=== PATIENT | male | born 1950 | race Caucasian/White ===

== ENCOUNTER 2016-05-23 19:35 | Inpatient (IN) | payer BC ==
[2016-05-23] MEDS ORDERED: HEPARIN SODIUM,PORCINE 10,000 UNIT/ML 1 ML VIAL IV ONE (19:54)
[2016-05-23] MEDS ORDERED: HYDROmorphone 1 MG/ML 1 ML SYRINGE IVP STA (19:55)
[2016-05-23] MEDS ORDERED: ONDANSETRON 4 MG/2 ML VIAL IVP STA (19:56)
--- NOTE | 2016-05-23 19:58 | ED ---
General Adult HPI - General Chief complaint: Chest Pain Stated complaint: Chest Pain Time Seen by Provider: 05/23/16 19:40 Source: patient, RN notes reviewed Mode of arrival: wheelchair Limitations: no limitations - History of Present Illness Initial comments: This is a 66-year-old male who was diagnosed with a pulmonary embolism on Saturday patient has taken Xarelto Saturday and this morning. He has not taken the dose of Xarelto tonight. Patient states about 1:30 this afternoon started developing left-sided sharp chest pain worse with inspiration. Patient states is also mildly short of breath. Patient states they do not know why he has pulmonary embolisms but no one has investigated yet. Patient denies any palpitations. Patient denies any fever or chills. Patient denies abdominal pain. Patient denies nausea vomiting diarrhea. Patient denies any leg swelling or calf tenderness. Patient denies headache patient denies numbness weakness. - Related Data Home Medications Medication Instructions Recorded Confirmed Albuterol Nebulized [Ventolin 2.5 mg INHALATION RT-Q6H PRN 05/23/16 05/23/16 Nebulized] Losartan [Cozaar] 25 mg PO DAILY 05/23/16 05/23/16 Rivaroxaban [Xarelto] 15 mg PO BID 05/23/16 05/23/16 Allergies Allergy/AdvReac Type Severity Reaction Status Date / Time No Known Allergies Allergy Verified 05/23/16 19:59 Review of Systems ROS Statement: Those systems with pertinent positive or pertinent negative responses have been documented in the HPI. ROS Other: All systems not noted in ROS Statement are negative. Past Medical History Past Medical History: Deep Vein Thrombosis (DVT), Hypertension Additional Past Medical History / Comment(s): blood clot History of Any Multi-Drug Resistant Organisms: None Reported Past Surgical History: No Surgical Hx Reported Past Psychological History: No Psychological Hx Reported Smoking Status: Never smoker Past Alcohol Use History: Rare Past Drug Use History: None Reported General Exam - General Exam Comments Initial Comments: GENERAL: Patient is well-developed and well-nourished. Patient is nontoxic and well- hydrated and is in mild distress. ENT: Neck is soft and supple. No significant lymphadenopathy is noted. Oropharynx is clear. Moist mucous membranes. Neck has full range of motion without eliciting any pain. EYES: The sclera were anicteric and conjunctiva were pink and moist. Extraocular movements were intact and pupils were equal round and reactive to light. Eyelids were unremarkable. PULMONARY: Unlabored respirations. Good breath sounds bilaterally. No audible rales rhonchi or wheezing was noted. CARDIOVASCULAR: There is a regular rate and rhythm without any murmurs gallops or rubs. ABDOMEN: Soft and nontender with normal bowel sounds. No palpable organomegaly was noted. There is no palpable pulsatile mass. SKIN: Skin is clear with no lesions or rashes and otherwise unremarkable. NEUROLOGIC: Patient is alert and oriented x3. Cranial nerves II through XII are grossly intact. Motor and sensory are also intact. Normal speech, volume and content. Symmetrical smile. MUSCULOSKELETAL: Normal extremities with adequate strength and full range of motion. No lower extremity swelling or edema. No calf tenderness. LYMPHATICS: No significant lymphadenopathy is noted PSYCHIATRIC: Normal psychiatric evaluation. Normal interpersonal interactions appears functionally intact in deals appropriately with others. No signs of depression. No signs of anxiety. Limitations: no limitations Course Vital Signs 05/23/16 05/23/16 05/23/16 19:39 20:45 20:59 Temperature 98.4 F Pulse Rate 104 H 88 Respiratory 20 20 Rate Blood Pressure 144/83 153/77 O2 Sat by Pulse 92 L 88 L 89 L Oximetry Medical Decision Making - Medical Decision Making EKG shows sinus tachycardia at 102 bpm MI interval 298 QRS is 92 QT interval 306 QTC is 398. Patient's EKG shows inverted T waves in the inferior leads II, III, and F aVF patient also has inverted T waves in leads V3 through V6. I currently have no old EKG to compare to. I started the patient on high-dose heparin once I saw that the patient had bilateral central pulmonary emboli. Spoke with Dr. Hoover he agreed to admit the patient. I spoke with the swimming pool salesperson and he agreed to admit the patient. ICU. I wrote admitting orders and continue the heparin on the floor. - Lab Data Result diagrams: 05/23/16 20:15 05/23/16 20:15 Lab Results 05/23/16 05/23/16 05/23/16 Range/Units 20:15 20:15 20:15 WBC 9.7 (3.8-10.6) k/uL RBC 4.82 (4.30-5.90) m/uL Hgb 15.0 (13.0-17.5) gm/dL Hct 43.4 (39.0-53.0) % MCV 90.0 (80.0-100.0) fL MCH 31.1 (25.0-35.0) pg MCHC 34.6 (31.0-37.0) g/dL RDW 13.4 (11.5-15.5) % Plt Count 208 (150-450) k/uL Neutrophils % 79 % Lymphocytes % 11 % Monocytes % 7 % Eosinophils % 1 % Basophils % 1 % Neutrophils # 7.6 (1.3-7.7) k/uL Lymphocytes # 1.1 (1.0-4.8) k/uL Monocytes # 0.6 (0-1.0) k/uL Eosinophils # 0.1 (0-0.7) k/uL Basophils # 0.1 (0-0.2) k/uL PT 13.4 H (9.0-12.0) sec INR 1.4 (<1.1) APTT 29.0 (22.0-30.0) sec D-Dimer 4.68 H (<0.60) mg/L FEU Sodium 141 (137-145) mmol/L Potassium 3.5 (3.5-5.1) mmol/L Chloride 106 (98-107) mmol/L Carbon Dioxide 21 L (22-30) mmol/L Anion Gap 14 mmol/L BUN 16 (9-20) mg/dL Creatinine 1.23 (0.66-1.25) mg/dL Est GFR (MDRD) Af Amer >60 (>60 ml/min/1.73 sqM) Est GFR (MDRD) Non-Af 59 (>60 ml/min/1.73 sqM) Glucose 133 H (74-99) mg/dL Calcium 9.3 (8.4-10.2) mg/dL Magnesium 2.0 (1.6-2.3) mg/dL Total Bilirubin 1.1 (0.2-1.3) mg/dL AST 31 (17-59) U/L ALT 42 (21-72) U/L Alkaline Phosphatase 105 (38-126) U/L Total Protein 7.5 (6.3-8.2) g/dL Albumin 3.9 (3.5-5.0) g/dL Critical Care Time Critical Care Time: Yes Total Critical Care Time: 35 Disposition Clinical Impression: Pulmonary embolism Disposition: ADMITTED IP TO THIS HOSP Referrals: Elisa Deleon DO [Primary Care Provider] - 1-2 days Time of Disposition: 21:02
[2016-05-23 20:25] LABS: Basophils # (A) 0.1 k/uL (0-0.2); Basophils % (A) 1 %; CH 30.6; CHCM 34.1; Eosinophils # (A) 0.1 k/uL (0-0.7); Eosinophils % (A) 1 %; HCT 43.4 % (39.0-53.0); HDW 2.73; Luc # (Auto) 0.16; Luc % (Auto) 2; Lymphocytes # (A) 1.1 k/uL (1.0-4.8); Lymphocytes % (A) 11 %; MCH 31.1 pg (25.0-35.0); MCHC 34.6 g/dL (31.0-37.0); Mean Platelet Volume 8.2; Monocytes # (A) 0.6 k/uL (0-1.0); Monocytes % (A) 7 %; Neutrophils # (A) 7.6 k/uL (1.3-7.7); Neutrophils % (A) 79 %; RBC 4.82 m/uL (4.30-5.90); RDW 13.4 % (11.5-15.5); WBC 9.7 k/uL (3.8-10.6); WBC (Perox) 9.62
[2016-05-23] MEDS: HEPARIN SODIUM,PORCINE/D5W PMX 25,000 UNIT in DEXTROSE/WATER 1 500ML.BAG IV SCH (20:26)
[2016-05-23 20:35] LABS: ALT 42 U/L (21-72); AST 31 U/L (17-59); Alkaline Phosphatase 105 U/L (38-126); Anion Gap 14 mmol/L; Blood Urea Nitrogen 16 mg/dL (9-20); Calcium 9.3 mg/dL (8.4-10.2); Carbon Dioxide 21 mmol/L (22-30); Chloride 106 mmol/L (98-107); Glucose 133 mg/dL (74-99); Non-African American GFR(MDRD) 59 (>60 ml/min/1.73 sqM); Potassium 3.5 mmol/L (3.5-5.1); Sodium 141 mmol/L (137-145); Total Bilirubin 1.1 mg/dL (0.2-1.3); Total Protein 7.5 g/dL (6.3-8.2)
[2016-05-23 20:45] LABS: INR 1.4 (<1.1); Prothrombin Time 13.4 sec (9.0-12.0)
--- NOTE | 2016-05-23 20:56 | XR ---
EXAMINATION TYPE: XR chest 2V DATE OF EXAM: 05/23/2016 8:51 PM COMPARISON: NONE HISTORY: Chest pain TECHNIQUE: Frontal and lateral views of the chest are obtained. FINDINGS: There is no heart failure. There is patchy pneumonic infiltrate in the left lower lobe. Th e right lung is clear. Mediastinum is normal. There is no pleural effusion. There are chest leads. IMPRESSION: Left lower lobe pneumonia. No heart failure.
[2016-05-23 21:04] LABS: Troponin I 0.034 ng/mL (0.000-0.034)
[2016-05-23] MEDS ORDERED: NALOXONE 0.4 MG/ML 1 ML VIAL IV PRN ×2 (21:05→22:41)
[2016-05-23 21:07] LABS: Creatine Kinase MB 3.7 ng/mL (0.0-2.4)
[2016-05-23] MEDS ORDERED: INSULIN REGULAR 100 UNIT in SODIUM CHLORIDE 0.9% 100 ML IV SCH (21:15)
[2016-05-23] MEDS ORDERED: SODIUM CHLORIDE 0.9% 1,000 ML IV SCH (21:15)
[2016-05-23 22:19] LABS: Glucose,Whole Blood 112 mg/dL (75-99)
[2016-05-24] MEDS ORDERED: MORPHINE SULFATE 2 MG/ML SYRINGE IVP PRN (00:13)
[2016-05-24] MEDS ORDERED: NITROGLYCERIN SL TABS 0.4 MG TAB SUBLINGUAL PRN (00:13)
[2016-05-24] MEDS: SODIUM CHLORIDE 0.9% 1,000 ML IV SCH (00:27)
[2016-05-24 02:35] LABS: Basophils # (A) 0.1 k/uL (0-0.2); Basophils % (A) 1 %; CH 30.4; CHCM 33.4; Eosinophils # (A) 0.3 k/uL (0-0.7); Eosinophils % (A) 3 %; HCT 40.1 % (39.0-53.0); HDW 2.68; HGB 13.7 gm/dL (13.0-17.5); Luc # (Auto) 0.19; Luc % (Auto) 3; Lymphocytes # (A) 1.5 k/uL (1.0-4.8); Lymphocytes % (A) 20 %; MCH 31.1 pg (25.0-35.0); MCV 91.3 fL (80.0-100.0); Mean Platelet Volume 8.3; Monocytes # (A) 0.6 k/uL (0-1.0); Monocytes % (A) 8 %; Neutrophils # (A) 4.9 k/uL (1.3-7.7); Neutrophils % (A) 66 %; RDW 13.5 % (11.5-15.5); WBC 7.4 k/uL (3.8-10.6); WBC (Perox) 7.87
[2016-05-24 02:59] LABS: INR 1.4 (<1.1); Prothrombin Time 13.5 sec (9.0-12.0)
[2016-05-24 03:03] LABS: Partial Thromboplastin Time >200.0 sec (22.0-30.0)
[2016-05-24 03:12] LABS: Anion Gap 11 mmol/L; Blood Urea Nitrogen 15 mg/dL (9-20); Calcium 8.5 mg/dL (8.4-10.2); Carbon Dioxide 22 mmol/L (22-30); Chloride 107 mmol/L (98-107); Glucose 108 mg/dL (74-99); Non-African American GFR(MDRD) >60 (>60 ml/min/1.73 sqM); Phosphorous 4.6 mg/dL (2.5-4.5); Potassium 3.3 mmol/L (3.5-5.1); Sodium 140 mmol/L (137-145)
[2016-05-24] MEDS ORDERED: Potassium Replacement Protocol 1 EACH MISC MISCELLANE PRN (03:44)
[2016-05-24] MEDS: POTASSIUM CHLORIDE ER 20 MEQ TAB.ER PO SCH ×3 (05:43→07:20)
--- NOTE | 2016-05-24 06:52 | XR ---
EXAMINATION TYPE: XR chest 1V DATE OF EXAM: 05/24/2016 6:27 AM CLINICAL HISTORY: Chest pain worse on inspiration progress study. TECHNIQUE: Single AP portable upright view of the chest is obtained. COMPARISON: Chest x-ray from one day earlier FINDINGS: There is persistent mild cardiomegaly with bilateral hilar prominence or consolidation and elevated right hemidiaphragm. There is developing right basilar opacity with improved aeration left lung base identified. No pleural effusion or pneumothorax is present. Osseous structures are intact. IMPRESSION: Persistent bilateral perihilar infiltrates and/or edema with developing right basilar inf iltrate and/or atelectasis identified, improved aeration left lung base is noted.
[2016-05-24 07:06] LABS: Appearance,Urine Clear (Clear); Bilirubin,Urine Negative (Negative); Glucose,Urine (UA) Negative (Negative); Ketones,Urine Negative (Negative); Leukocyte Esterase,Urine Negative (Negative); Nitrite,Urine Negative (Negative); PH, Urine 5.5 (5.0-8.0); Particle Count 2802; Protein,Urine 1+ (Negative); UA Billing (MACRO vs. MICRO) MICRO; Urobilinogen,Urine <2.0 mg/dL (<2.0); WBC,Urine 1 /hpf (0-5)
[2016-05-24] MEDS: HEPARIN SODIUM,PORCINE/D5W PMX 25,000 UNIT in DEXTROSE/WATER 1 500ML.BAG IV SCH ×2 (08:38→22:23)
[2016-05-24] MEDS ORDERED: PANTOPRAZOLE 40 MG/10 ML VIAL IV SCH (09:00)
[2016-05-24] MEDS ORDERED: RX INFO: IV CONTRAST WAS GIVEN 1 EACH MISC MISCELLANE PRN (09:06)
[2016-05-24 09:32] LABS: INR 1.2 (<1.1); Partial Thromboplastin Time 41.3 sec (22.0-30.0); Prothrombin Time 12.3 sec (9.0-12.0)
--- NOTE | 2016-05-24 09:39 | P.CNPUL ---
History of Present Illness Consult date: 05/24/16 Reason for consult: dyspnea, chest pain, pulmonary embolism Chief complaint: Pulmonary embolism History of present illness: 66-year-old male who was recently diagnosed as having a pulmonary embolism at the [facility] on Saturday. The patient apparently came to the hospital for a CT angiogram and then was discharged. After he got home, he was that the apparently alerted of the physician was alerted that he had a blood clot and he was started on Zarrella toe 50 mg twice a day for 21 days. He apparently started that and this then developed some left-sided sharp chest pain. It was worse with inspiration. He was also short of breath. No fever no chills. Not really coughing. Not producing any phlegm. For that reason he came back in. The patient's CAT scan apparently showed a central pulmonary embolus some bilaterally. I don't know that showed any evidence of strain or anything like that. Anyway he needs some things done including a repeat CT angiogram an echocardiogram Doppler extremity. He is currently on IV heparin. I did speak to the ER doctor last night. He has a but appears to be an unprovoked blood clot he'll need 6 months of therapy. He will need follow with me in the office. Review of Systems A 12 point review of system is positive for shortness breath a left-sided chest pain which clearly has a pleuritic component. This may suggest pulmonary infarct as opposed to show pulmonary embolism. Additional recommendations suggestions we made in regards to review of systems once echo Doppler and CT angiogram are done. Past Medical History Past Medical History: Deep Vein Thrombosis (DVT), Hypertension, Pulmonary Embolus (PE) Additional Past Medical History / Comment(s): blood clot History of Any Multi-Drug Resistant Organisms: None Reported Past Surgical History: No Surgical Hx Reported Past Anesthesia/Blood Transfusion Reactions: No Reported Reaction Past Psychological History: No Psychological Hx Reported Smoking Status: Never smoker Past Alcohol Use History: None Reported, Rare Past Drug Use History: None Reported - Past Family History Father Family Medical History: Hypertension, Myocardial Infarction ([place]) Additional Family Medical History / Comment(s): at 47y.o. r/t [place] Mother Family Medical History: Deep Vein Thrombosis (DVT), Hypertension, Myocardial Infarction ([place]) Additional Family Medical History / Comment(s): of blood clot Medications and Allergies Home Medications Medication Instructions Recorded Confirmed Type Albuterol Nebulized [Ventolin 2.5 mg INHALATION RT-Q6H PRN 05/23/16 05/23/16 History Nebulized] Losartan [Cozaar] 25 mg PO DAILY 05/23/16 05/23/16 History Rivaroxaban [Xarelto] 15 mg PO BID 05/23/16 05/23/16 History Allergies Allergy/AdvReac Type Severity Reaction Status Date / Time No Known Allergies Allergy Verified 05/23/16 19:59 Physical Exam Osteopathic Statement: *. No significant issues noted on an osteopathic structural exam other than those noted in the History and Physical/Consult. Vitals: Vital Signs Temp Pulse Pulse Resp BP BP Pulse Ox 05/24/16 08:00 98.2 F 86 27 H 145/87 96 05/24/16 07:00 92 22 148/87 90 L 05/24/16 06:00 85 22 125/81 96 05/24/16 05:00 74 20 132/82 94 L 05/24/16 04:00 98.2 F 76 20 126/84 92 L 05/24/16 03:00 73 22 128/78 93 L 05/24/16 02:00 74 24 121/79 93 L 05/24/16 01:00 76 25 H 132/88 94 L 05/24/16 00:00 80 24 124/83 95 05/23/16 23:19 87 27 H 133/79 85 L 05/23/16 23:10 90 30 H 133/79 81 L 05/23/16 23:00 90 23 133/79 85 L 05/23/16 22:50 91 28 H 133/79 82 L 05/23/16 22:40 93 25 H 133/79 81 L 05/23/16 22:30 94 28 H 132/71 87 L 05/23/16 22:20 95 25 H 132/71 88 L 05/23/16 22:10 98.3 F 97 28 H 132/71 90 L 05/23/16 21:48 98.3 F 90 20 132/71 86 L Intake and Output 05/23/16 05/24/16 05/24/16 22:59 06:59 14:59 Intake Total 64.5 1053.648 194.942 Output Total 0 175 Balance 64.5 878.648 194.942 Intake: IV 64.5 338.0 60 Heparin Sodium,Porcine/ 44.5 178.0 D5w Pmx 25,000 unit In Dextrose/Water 1 500ml. bag @ 18 UNITS/KG/HR 44. 57 mls/hr IV .[id number] [facility] Rx#:[id number] Normal saline 20 160 60 Intake, IV Titration 295.648 134.942 Amount Heparin Sodium,Porcine/ 295.648 134.942 D5w Pmx 25,000 unit In Dextrose/Water 1 500ml. bag @ 18 UNITS/KG/HR 44. 57 mls/hr IV .[id number] [facility] Rx#:[id number] Oral 420 Output: Urine 0 175 Other: Voiding Method Urinal Urinal # Voids 1 # Bowel Movements 0 Weight 123.6 kg 124.7 kg No acute distress, oriented 3. No tachypnea or dyspnea. HEENT examination is grossly unremarkable. Mucous membranes are moist. No oral lesions. Supple. Full range of motion. No adenopathy. Neck veins are flat. Cardiovascular examination reveals regular rhythm rate. Heart rate about 90. S1-S2 normal. No murmur. Lungs reveal relatively clear breath sounds. No wheezes rhonchi. No crackles. Abdomen soft bowel sounds are heard. Extremities are intact. Results - Laboratory Findings CBC and BMP: 05/24/16 02:17 05/24/16 02:17 PT/INR, D-dimer PT 13.5 sec (9.0-12.0) H 05/24/16 02:17 INR 1.4 (<1.1) 05/24/16 02:17 D-Dimer 4.68 mg/L FEU (<0.60) H 05/23/16 20:15 Abnormal lab findings: Abnormal Labs 05/23/16 05/24/16 05/24/16 22:04 02:17 02:17 PT 13.5 H APTT >200.0 H* Potassium 3.3 L Glucose 108 H POC Glucose (mg/dL) 112 H Phosphorus 4.6 H Urine Protein 05/24/16 06:00 PT APTT Potassium Glucose POC Glucose (mg/dL) Phosphorus Urine Protein 1+ H - Diagnostic Findings Chest x-ray: image reviewed (X-rays labs and medications are all reviewed.) Assessment and Plan (1) Pulmonary embolism Status: Acute Plan: Plan The patient currently is receiving I'll high flow oxygen therapy. He is on IV heparin via weightbase protocol. He is receiving appointment 9 IV at 20 mL an hour. The patient's primary doctor is Dr. Deleon. He needs an echocardiogram to rule out acute tricuspid regurgitation right heart strain and flattening or shifting of the diaphragm of the septum. He'll need a CT angiogram the chest and Dopplers of lower extremities. Additional recommendations suggestions are forthcoming. Because of his unstable situation currently, we'll keep the ICU and keep him on IV heparin. Additional recommendations suggestions are forthcoming. Gnosis is guarded. I did talk about the possibility of low-dose TPA if he should have a submassive PE. This is a typically seen in patients who are hemodynamically stable. They may have changes on echocardiogram to suggest right heart strain and may have elevated BNP and troponin levels. I did ask her BMP and troponin levels be drawn. Time with Patient: Greater than 30
[2016-05-24 09:46] LABS: Anion Gap 10 mmol/L; Blood Urea Nitrogen 14 mg/dL (9-20); Calcium 8.8 mg/dL (8.4-10.2); Carbon Dioxide 25 mmol/L (22-30); Chloride 106 mmol/L (98-107); Glucose 121 mg/dL (74-99); Non-African American GFR(MDRD) >60 (>60 ml/min/1.73 sqM); Potassium 4.1 mmol/L (3.5-5.1); Sodium 141 mmol/L (137-145)
[2016-05-24 09:56] VITALS: BMI 37.3
--- NOTE | 2016-05-24 10:57 | US ---
EXAMINATION TYPE: US venous doppler duplex LE DATE OF EXAM: 05/24/2016 10:00 AM COMPARISON: NONE CLINICAL HISTORY: PE. on Heparin, no leg pain SIDE PERFORMED: Bilateral VESSELS IMAGED: External Iliac Vein (EIV) Common Femoral Vein Deep Femoral Vein Greater Saphenous Vein * Femoral Vein Popliteal Vein Small Saphenous Vein * Proximal Calf Veins (* superficial vessels) TECHNOLOGIST IMPRESSION: Right Leg: Appears negative for DVT. Rouleax seen in Proximal Popliteal vein and appears dilated- co mpressible with wall to wall color flow seen Left Leg: Positive for DVT at Proximal Popliteal vein to Proximal calf veins. Thready flow seen in Popliteal vein. Right proximal popliteal vein appears prominent but shows complete compression and satisfactory color flow. In the left lower extremity beginning in proximal popliteal vein is heterogeneous hyperechoic material filling and expanding the lumen with absent color flow this extends into the mid and distal popliteal vein with absent color flow noted in left calf veins last image. IMPRESSION: Acute DVT left lower extremity beginning at the proximal popliteal vein extending into c rosalba veins is noted. Patient noted already on blood thinners.
--- NOTE | 2016-05-24 11:23 | ECHOF ---
Referral Reason:large central bilateral PE MEASUREMENTS -------- HEIGHT: 182.9 cm WEIGHT: 124.3 kg BP: 146/97 RVIDd: 4.0 cm (< 3.3) IVSd: 1.4 cm (0.6 - 1.1) LVIDd: 3.8 cm (3.9 - 5.3) LVPWd: 1.4 cm (0.6 - 1.1) IVSs: 2.1 cm LVIDs: 2.6 cm LVPWs: 1.9 cm LA Diam: 3.8 cm (2.7 - 3.8) LAESV Index (A-L): 25.31 ml/m Ao Diam: 4.3 cm (2.0 - 3.7) AV Cusp: 2.2 cm (1.5 - 2.6) MV EXCURSION: 20.304 mm (> 18.000) MV EF SLOPE: 31 mm/s (70 - 150) MV E Burt: 0.84 m/s MV DecT: 248 ms MV A Burt: 0.91 m/s MV E/A Ratio: 0.92 RAP: 5.00 mmHg RVSP: 43.98 mmHg FINDINGS -------- Sinus rhythm. This was a technically good study. There is moderate concentric left ventricular hypertrophy. Overall left ventricular systolic function is normal with, an EF between 55 - 60 %. The right ventricle is moderately enlarged. The right ventricular septal wall is flattened in diastole and systole which is consistent with right ventricular volume and pressure overload. Normal LA size by volume 22+/-6 ml/m2. The right atrium is normal in size. The aortic valve is trileaflet and appears structurally normal. Mild mitral regurgitation is present. Mild tricuspid regurgitation present. There is mild pulmonary hypertension. The right ventricular systolic pressure, as measured by Doppler, is 43.98mmHg. Trace/mild (physiologic) pulmonic regurgitation. The aortic root and ascending aorta are dilated measuring up to 43 mm. IVC Not well visulized. There is no pericardial effusion. CONCLUSIONS -------- 1. Sinus rhythm. 2. Mild mitral regurgitation is present. 3. Mild tricuspid regurgitation present. 4. There is mild pulmonary hypertension. 5. The right ventricular systolic pressure, as measured by Doppler, is 43.98mmHg. 6. Trace/mild (physiologic) pulmonic regurgitation. 7. The aortic root and ascending aorta are dilated measuring up to 43 mm. 8. IVC Not well visulized. 9. There is no pericardial effusion. 10. This was a technically good study. 11. There is moderate concentric left ventricular hypertrophy. 12. Overall left ventricular systolic function is normal with, an EF between 55 - 60 %. 13. The right ventricle is moderately enlarged. 14. The right ventricular septal wall is flattened in diastole and systole which is consistent with right ventricular volume and pressure overload. 15. Normal LA size by volume 22+/-6 ml/m2. 16. The right atrium is normal in size. 17. The aortic valve is trileaflet and appears structurally normal. DUNGEON MASTER: Chhaya Lehman RDCS
[2016-05-24] MEDS: LOSARTAN 25 MG TAB PO SCH (11:26)
--- NOTE | 2016-05-24 11:33 | P.HPIM ---
History of Present Illness H&P Date: 05/24/16 Chief Complaint: Chest pain and shortness of breath This is a 66-year-old male, patient of [facility]. He has a known past medical history of hypertension. Saturday patient was diagnosed with a PE. He reports going to [facility] for CTA of the chest. It revealed a central PE and bilateral PE. Patient was placed on Xarelto in the outpatient setting by his PCP. Patient took Xarelto on Saturday, Saturday and Saturday morning. However he started having worsening shortness of breath and left- sided chest pains. He came into the emergency room for further evaluation. He was started on IV heparin Xarelto was discontinued. A repeat CT of the chest was ordered. Doppler of the lower extremities did reveal a left lower extremity DVT. Patient is currently admitted to the ICU. He did have decrease in oxygen saturation down to 81% requiring nonrebreather. Currently on high flow oxygen at 15%. Echocardiogram was ordered per pulmonary service. Pulmonary service is following. Patient reports that his chest discomfort and shortness of breath has shown improvement after being hospitalized. He denies any fevers chills or sweats. Does admit to having us a cough that appears to also have shown some improvement. Denies any nausea or vomiting. Denies any bowel movement changes or urinary symptoms. Denies any fevers chills or sweats. Patient has a mother who had a history of a blood clot in the legs. He denies any recent traveling. Review of Systems Please refer to HPI otherwise unremarkable Past Medical History Past Medical History: Deep Vein Thrombosis (DVT), Hypertension, Pulmonary Embolus (PE) History of Any Multi-Drug Resistant Organisms: None Reported Past Surgical History: No Surgical Hx Reported Past Anesthesia/Blood Transfusion Reactions: No Reported Reaction Past Psychological History: No Psychological Hx Reported Smoking Status: Never smoker Past Alcohol Use History: None Reported, Rare Past Drug Use History: None Reported - Past Family History Father Family Medical History: Hypertension, Myocardial Infarction ([place]) Additional Family Medical History / Comment(s): at 47y.o. r/t [place] Mother Family Medical History: Deep Vein Thrombosis (DVT), Hypertension, Myocardial Infarction ([place]) Additional Family Medical History / Comment(s): of blood clot Medications and Allergies Home Medications Medication Instructions Recorded Confirmed Type Albuterol Nebulized [Ventolin 2.5 mg INHALATION RT-Q6H PRN 05/23/16 05/23/16 History Nebulized] Losartan [Cozaar] 25 mg PO DAILY 05/23/16 05/23/16 History Rivaroxaban [Xarelto] 15 mg PO BID 05/23/16 05/23/16 History Allergies Allergy/AdvReac Type Severity Reaction Status Date / Time No Known Allergies Allergy Verified 05/23/16 19:59 Physical Exam Vitals: Vital Signs Temp Pulse Pulse Resp BP BP Pulse Ox 05/24/16 10:00 87 25 H 146/97 90 L 05/24/16 09:00 83 22 145/88 91 L 05/24/16 08:00 98.2 F 86 27 H 145/87 96 05/24/16 07:00 92 22 148/87 90 L 05/24/16 06:00 85 22 125/81 96 05/24/16 05:00 74 20 132/82 94 L 05/24/16 04:00 98.2 F 76 20 126/84 92 L 05/24/16 03:00 73 22 128/78 93 L 05/24/16 02:00 74 24 121/79 93 L 05/24/16 01:00 76 25 H 132/88 94 L 05/24/16 00:00 80 24 124/83 95 05/23/16 23:19 87 27 H 133/79 85 L 05/23/16 23:10 90 30 H 133/79 81 L 05/23/16 23:00 90 23 133/79 85 L 05/23/16 22:50 91 28 H 133/79 82 L 05/23/16 22:40 93 25 H 133/79 81 L 05/23/16 22:30 94 28 H 132/71 87 L 05/23/16 22:20 95 25 H 132/71 88 L 05/23/16 22:10 98.3 F 97 28 H 132/71 90 L 05/23/16 21:48 98.3 F 90 20 132/71 86 L Intake and Output 05/23/16 05/24/16 05/24/16 22:59 06:59 14:59 Intake Total 64.5 1053.648 294.942 Output Total 0 175 300 Balance 64.5 878.648 -5.058 Intake: IV 64.5 338.0 100 Heparin Sodium,Porcine/ 44.5 178.0 D5w Pmx 25,000 unit In Dextrose/Water 1 500ml. bag @ 18 UNITS/KG/HR 44. 57 mls/hr IV .[id number] [facility] Rx#:[id number] Normal saline 20 160 100 Intake, IV Titration 295.648 134.942 Amount Heparin Sodium,Porcine/ 295.648 134.942 D5w Pmx 25,000 unit In Dextrose/Water 1 500ml. bag @ 18 UNITS/KG/HR 44. 57 mls/hr IV .[id number] [facility] Rx#:[id number] Oral 420 60 Output: Urine 0 175 300 Other: Voiding Method Urinal Urinal # Voids 1 1 # Bowel Movements 0 Weight 123.6 kg 124.7 kg 124.7 kg Patient Weight 05/25/16 06:59 Weight 124.7 kg Head normocephalic Neck supple Lungs mild crackles in the left lower lobe Heart regular rate and rhythm S1-S2, no rub or gallop Abdomen is soft nontender nondistended positive bowel sounds no hepatosplenomegaly Extremities no edema Neuro alert and orientated to 3 Results CBC & Chem 7: 05/24/16 02:17 05/24/16 09:11 Labs: Abnormal Lab Results - Last 24 Hours (Table) 05/23/16 05/24/16 05/24/16 Range/Units 22:04 02:17 02:17 PT 13.5 H (9.0-12.0) sec APTT >200.0 H* (22.0-30.0) sec Potassium 3.3 L (3.5-5.1) mmol/L Glucose 108 H (74-99) mg/dL POC Glucose (mg/dL) 112 H (75-99) mg/dL Phosphorus 4.6 H (2.5-4.5) mg/dL Urine Protein (Negative) 05/24/16 05/24/16 05/24/16 Range/Units 06:00 09:11 09:11 PT 12.3 H (9.0-12.0) sec APTT 41.3 H (22.0-30.0) sec Potassium (3.5-5.1) mmol/L Glucose 121 H (74-99) mg/dL POC Glucose (mg/dL) (75-99) mg/dL Phosphorus (2.5-4.5) mg/dL Urine Protein 1+ H (Negative) Thrombosis Risk Factor Assmnt - Choose All That Apply Each Factor Represents 1 point: Medical pt on bed rest, Obesity (BMI >25) Each Risk Factor Represents 2 Points: Age 61-74 years Each Risk Factor Represents 3 Points: Family history of DVT/PE, History of DVT/ PE Thrombosis Risk Factor Assessment Total Risk Factor Score: 10 Thrombosis Risk Factor Assessment Level: High Risk Assessment and Plan Plan: 1. Pulmonary embolism: Started on Xarelto outpatient setting. Patient's symptoms worsened. Currently in the ICU repeat CTA of the chest was ordered. Echo pending. Doppler did show evidence of the left lower extremity DVT. Continue with IV heparin. Pulmonary service is following will await their further recommendations 2. Acute hypoxic respiratory failure secondary to the PE 3. Essential hypertension: Blood pressure stable resume Cozaar 4. Hypokalemia patient received potassium supplement GI prophylaxis Protonix and DVT prophylaxis IV heparin Time with Patient: Greater than 30 (Greater than 50% of the total time spent in counseling and coordination of care.I performed an examination of the patient and discussed their management with the physician Accredited Pharmacy Technician. I have reviewed the Physician Accredited Pharmacy Technician's notes and agree with the documented findings and plan of care)
--- NOTE | 2016-05-24 12:46 | CT ---
CT CHEST FOR PULMONARY EMBOLISM. EXAMINATION TYPE: CT angio chest DATE OF EXAM: 05/24/2016 11:36 AM INDICATION: PE. Known DVT CT DLP: 622.20 mGycm, Automated exposure control for dose reduction was used. CONTRAST: Patient injected with 100 ml mL of Omnipaque 350. COMPARISON: None available at this location at this time. TECHNIQUE: CT of the chest is performed on a spiral scan at 2 mm thick sections. Study is performed with intravenous contrast timed for evaluation for pulmonary embolism. This will limit additional po rtions of the evaluation. 3-D MIP images reconstructed by the technologist are reviewed on the compu ter in the coronal and sagittal planes. FINDINGS: Large bilateral pulmonary emboli are present. These are at the distal left main pulmonary artery and within the mid to distal right main pulmonary artery. Small amount of vascularity is patent to the lo wer lobes. There are scattered small to borderline size lymph nodes within the mediastinum. Some enlarged lymph adenopathy measuring 1.2 cm in the pretracheal space and 1.1 cm in the aortopulmonic window are prese nt. The ascending aorta diameter at the level of the main pulmonary artery is 4.7 cm. The main pulmo nary artery diameter at the bifurcation is 3.7 cm. Atelectatic changes are within the left lung. Some right lower lobe atelectasis is likely present. Th ere may be some bronchiectasis in the right lower lobe. Limited CT section through the upper abdomen are unremarkable. IMPRESSIONS: 1. Large bilateral pulmonary emboli. 2. Enlarged mediastinal adenopathy. 3. Bibasilar mild streak atelectasis.
[2016-05-24] MEDS: ALBUTEROL NEBULIZED 2.5 MG/3 ML INHALATION PRN ×2 (13:53→18:19)
[2016-05-25] MEDS: SODIUM CHLORIDE 0.9% 1,000 ML IV SCH (01:42)
[2016-05-25 05:17] LABS: Basophils # (A) 0.1 k/uL (0-0.2); Basophils % (A) 1 %; CHCM 32.6; Eosinophils # (A) 0.4 k/uL (0-0.7); Eosinophils % (A) 6 %; HCT 41.2 % (39.0-53.0); HDW 2.69; HGB 13.1 gm/dL (13.0-17.5); Luc # (Auto) 0.17; Luc % (Auto) 2; Lymphocytes # (A) 1.1 k/uL (1.0-4.8); Lymphocytes % (A) 16 %; MCH 29.6 pg (25.0-35.0); MCHC 31.9 g/dL (31.0-37.0); MCV 92.6 fL (80.0-100.0); Mean Platelet Volume 7.6; Monocytes # (A) 0.6 k/uL (0-1.0); Monocytes % (A) 8 %; Neutrophils # (A) 4.8 k/uL (1.3-7.7); Neutrophils % (A) 68 %; RBC 4.44 m/uL (4.30-5.90); RDW 13.4 % (11.5-15.5); WBC 7.1 k/uL (3.8-10.6); WBC (Perox) 6.97
[2016-05-25 06:06] LABS: Anion Gap 10 mmol/L; Blood Urea Nitrogen 13 mg/dL (9-20); Calcium 8.7 mg/dL (8.4-10.2); Carbon Dioxide 24 mmol/L (22-30); Chloride 107 mmol/L (98-107); Glucose 109 mg/dL (74-99); Magnesium 2.2 mg/dL (1.6-2.3); Non-African American GFR(MDRD) >60 (>60 ml/min/1.73 sqM); Phosphorous 3.8 mg/dL (2.5-4.5); Potassium 4.2 mmol/L (3.5-5.1); Sodium 141 mmol/L (137-145)
--- NOTE | 2016-05-25 07:38 | XR ---
EXAMINATION TYPE: XR chest 1V DATE OF EXAM: 05/25/2016 6:52 AM HISTORY: ICU. REFERENCE: Previous study dated 05/24/2016. FINDINGS: The heart is enlarged. There is prominence of both lolita. There is a wedge-shaped opacity wi thin the right midlung. There is apparent elevation of the right hemidiaphragm. I could not exclude a small left effusion. IMPRESSION: 1. CARDIOMEGALY. 2. DEVELOPING OPACITY IN THE RIGHT MID LUNG MAY REPRESENT PULMONARY INFARCTION. 3. PROBABLE BILATERAL HILAR ADENOPATHY.
[2016-05-25] MEDS: PANTOPRAZOLE 40 MG TABLET PO SCH (08:21)
[2016-05-25] MEDS: LOSARTAN 25 MG TAB PO SCH (08:21)
[2016-05-25] MEDS: HEPARIN SODIUM,PORCINE/D5W PMX 25,000 UNIT in DEXTROSE/WATER 1 500ML.BAG IV SCH (08:22)
--- NOTE | 2016-05-25 09:12 | P.PN ---
Subjective Progress note dated down 05/25/2016 This is a 66-year-old male who was seen at [facility] earlier this week. I believe on Saturday. He was sent for an outpatient CT angiogram. He went home. Subsequent, the radiologist Dr. Kiser look at the scan and found that he had bilateral central pulmonary emboli. Others no evidence of right heart strain on CT. The patient was started on Xarelto. Subsequent to that, he developed worsening chest pain and shortness of breath and he came a the ER here where he was admitted. I repeated a CT angiogram yesterday. It again showed bilateral central pulmonary emboli. I had Dr. Kiser look at the CAT scan again in tell me that there was no evidence of right heart strain or flattening of the intraventricular septum or leftward movement of the intraventricular septum. The echocardiogram did show evidence of some mild acute right heart failure with some mild tricuspid regurgitation and enlarged right atrium large right ventricle and some flattening of the intraventricular septum. Clinically through all that she's been relatively stable. Doing much better today. We did do a Doppler below semi-which revealed a left lower extremity DVT. He is placed on IV heparin. He is doing well today and I'll be able to move him out of the ICU. He is down to a 6 L high flow. We'll be able to wean that further I believe. Hopefully in the next day or 2 will be able to the hospital. I'm to resume his as Xarelto. There is Zarrella toe should be prescribed 50 mg twice a day for 21 days and then 20 mg once a day for 6 a total of 6 months. Based on my discussing his case yesterday with him, the patient had no identifiable risk factor provoking factor for blood clot. Objective - Vital Signs Vital signs: Vital Signs Temp 97.8 F 05/25/16 08:00 Pulse 88 05/25/16 08:00 Resp 18 05/25/16 08:00 BP 145/92 05/25/16 08:00 Pulse Ox 94 L 05/25/16 09:00 Intake & Output 05/24/16 05/25/16 05/25/16 18:59 06:59 18:59 Intake Total 820.756 7163 160 Output Total 600 650 0 Balance 309.686 5062 160 Weight 124.7 kg 122.8 kg Intake: IV 260 220 40 Normal saline 260 220 40 Intake, IV Titration 134.942 500 Amount Heparin Sodium,Porcine/ 134.942 500 D5w Pmx 25,000 unit In Dextrose/Water 1 500ml. bag @ 18 UNITS/KG/HR 44. 57 mls/hr IV .[id number] [facility] Rx#:[id number] Oral 460 1200 Blood Product 120 Output: Urine 600 650 0 Other: Voiding Method Urinal Urinal Urinal # Voids 1 1 # Bowel Movements 0 - Exam No acute distress, oriented 3. Nasal O2 in place. He is resting comfortably. Certainly looks a lot better than yesterday. HEENT examination is grossly unremarkable. Mixed membranes are moist. Neck is supple. Full range of motion. No adenopathy. Cardiovascular examination reveals regular rhythm rate. Not tachycardic. S1- S2 normal. Lungs reveal few scattered mild rhonchi. No wheezes or crackles. Next Abdomen is soft. Next Extremities are intact. - Labs CBC & Chem 7: 05/25/16 04:33 05/25/16 04:33 Labs: Abnormal Lab Results - Last 24 Hours (Table) 05/24/16 05/24/16 05/24/16 Range/Units 09:11 09:11 13:36 PT 12.3 H (9.0-12.0) sec APTT 41.3 H 49.4 H (22.0-30.0) sec Glucose 121 H (74-99) mg/dL 05/25/16 05/25/16 Range/Units 04:33 04:33 PT (9.0-12.0) sec APTT 70.6 H (22.0-30.0) sec Glucose 109 H (74-99) mg/dL Microbiology - Last 24 Hours (Table) 05/24/16 08:25 Gram Stain - Preliminary Sputum Assessment and Plan (1) Pulmonary embolism Status: Acute Plan: Plan The patient currently is receiving I'll high flow oxygen therapy. He is on IV heparin via weightbase protocol. He is receiving appointment 9 IV at 20 mL an hour. The patient's primary doctor is Dr. Deleon. He needs an echocardiogram to rule out acute tricuspid regurgitation right heart strain and flattening or shifting of the diaphragm of the septum. He'll need a CT angiogram the chest and Dopplers of lower extremities. Additional recommendations suggestions are forthcoming. Because of his unstable situation currently, we'll keep the ICU and keep him on IV heparin. Additional recommendations suggestions are forthcoming. Gnosis is guarded. I did talk about the possibility of low-dose TPA if he should have a submassive PE. This is a typically seen in patients who are hemodynamically stable. They may have changes on echocardiogram to suggest right heart strain and may have elevated BNP and troponin levels. I did ask her BMP and troponin levels be drawn. Plan dated 05/25/2016 The patient is doing well. He'll be able to be moved out of the ICU today. Not ready for discharge yet. We'll resume his factor X a inhibitor. Heparin can be discontinued. Getting get up and use the bathroom. Additional recommendations suggestions are forthcoming. Prognosis is guarded. Time with Patient: Less than 30
[2016-05-25] MEDS: RIVAROXABAN 15 MG TAB PO SCH ×2 (09:42→18:07)
[2016-05-25] MEDS ORDERED: PNEUMOCOCCAL VACC-PNEUMOVAX 23 25 MCG/0.5 ML VIAL IM ONE (11:12)
--- NOTE | 2016-05-25 15:35 | P.CONS ---
History of Present Illness - Reason for Consult Consult date: 05/25/16 DVT/PE Requesting physician: Phyllis Hoover - Chief Complaint SOB - History of Present Illness Mr. Levy is a very pleasant male who noticed last week IKER walking 40 yards, a distance that he has walked many times without SOB. He was seen by his PCP, had CTA showing bilateral PE, he was started on xarelto which he took as directed, unfortunately he started having chest discomfort, more on the left side, worse with inspiration so he came to the hospital. Imaging report was read similar to previous report, no propagation, BLE were dopplered with LLE DVT found. Pt denied having any swelling or pain in his legs before or after starting on xarelto. Incidentally medistinal lymphadenopathy was noted on CT. Pt denies having any acute health changes other then the changes in his breathing, no personal history of cancer, no fevers, sweats, dysphagia, nausea or vomiting, palpitations, abd pain, bloating, appetite is good, no unintentional wt. loss, changes in bowel or bladder habits, energy levels stable , no excessive fatigue or MS weakness. He has never had colonoscopy, EGD or prostate exam. No PSA lab that he knows of. He is a lifetime non-smoker. Review of Systems All systems: negative Constitutional: Reports as per HPI Past Medical History Past Medical History: Deep Vein Thrombosis (DVT), Hypertension, Pulmonary Embolus (PE) Additional Past Medical History / Comment(s): blood clot History of Any Multi-Drug Resistant Organisms: None Reported Past Surgical History: No Surgical Hx Reported Past Anesthesia/Blood Transfusion Reactions: No Reported Reaction Past Psychological History: No Psychological Hx Reported Smoking Status: Never smoker Past Alcohol Use History: None Reported, Rare Past Drug Use History: None Reported - Past Family History Father Family Medical History: Hypertension, Myocardial Infarction ([place]) Additional Family Medical History / Comment(s): at 47y.o. r/t [place] Mother Family Medical History: Deep Vein Thrombosis (DVT), Hypertension, Myocardial Infarction ([place]) Additional Family Medical History / Comment(s): of blood clot Medications and Allergies Home Medications Medication Instructions Recorded Confirmed Type Albuterol Nebulized [Ventolin 2.5 mg INHALATION RT-Q6H PRN 05/23/16 05/23/16 History Nebulized] Losartan [Cozaar] 100 mg PO DAILY 05/23/16 05/24/16 History Rivaroxaban [Xarelto] 15 mg PO BID 05/23/16 05/23/16 History Atorvastatin [Lipitor] 20 mg PO DAILY 05/24/16 05/24/16 History Bisoprolol-Hctz 10-6.25 mg [Ziac 1 each PO DAILY 05/24/16 05/24/16 History 10-6.25] Hydrochlorothiazide 25 mg PO DAILY 05/24/16 05/24/16 History Omeprazole 40 mg PO DAILY 05/24/16 05/24/16 History amLODIPine [Norvasc] 10 mg PO DAILY 05/24/16 05/24/16 History Allergies Allergy/AdvReac Type Severity Reaction Status Date / Time No Known Allergies Allergy Verified 05/23/16 19:59 Physical Exam Vitals: Vital Signs Temp Pulse Pulse Resp BP BP Pulse Ox 05/25/16 11:49 98.0 F 92 18 140/87 95 05/25/16 11:06 96 05/25/16 09:00 94 L 05/25/16 08:00 97.8 F 88 18 145/92 96 05/25/16 07:00 78 17 154/89 94 L 05/25/16 06:00 75 23 151/85 96 05/25/16 05:00 80 24 146/84 97 05/25/16 04:00 98.0 F 70 24 152/85 97 05/25/16 03:00 70 21 146/89 95 05/25/16 02:00 77 12 137/91 95 05/25/16 01:00 74 20 136/88 93 L 05/25/16 00:00 98.7 F 74 17 133/86 90 L 05/24/16 23:01 78 20 147/93 93 L 05/24/16 23:00 86 19 147/93 91 L 05/24/16 22:00 85 24 151/89 94 L 05/24/16 21:00 94 14 137/91 93 L 05/24/16 20:00 92 24 151/94 93 L 05/24/16 19:00 90 22 148/87 93 L 05/24/16 18:21 85 05/24/16 18:05 85 05/24/16 18:00 91 29 H 128/82 96 05/24/16 17:00 78 22 154/81 97 05/24/16 16:00 98.3 F 86 29 H 137/89 93 L 05/24/16 15:00 87 17 114/82 93 L Intake and Output 05/24/16 05/25/16 05/25/16 22:59 06:59 14:59 Intake Total 1180 1120 160 Output Total 300 650 0 Balance 880 470 160 Intake: IV 140 160 40 Normal saline 140 160 40 Intake, IV Titration 500 Amount Heparin Sodium,Porcine/ 500 D5w Pmx 25,000 unit In Dextrose/Water 1 500ml. bag @ 18 UNITS/KG/HR 44. 57 mls/hr IV .[id number] [facility] Rx#:[id number] Oral 540 960 Blood Product 120 Output: Urine 300 650 0 Other: Voiding Method Urinal Urinal Urinal # Voids 1 1 # Bowel Movements 0 1 Weight 122.8 kg - Constitutional General appearance: cooperative, no acute distress, obese - EENT Eyes: anicteric sclerae, EOMI, normal appearance ENT: hearing grossly normal, normal oropharynx - Neck Neck: no lymphadenopathy - Respiratory Respiratory: bilateral: CTA - Cardiovascular Rhythm: regular Heart sounds: normal: S1, S2 Abnormal Heart Sounds: no systolic murmur, no diastolic murmur, no rub, no S3 Gallop, no S4 Gallop, no click, no other foot Peripheral Edema: bilateral: Trace - Gastrointestinal General gastrointestinal: no absent bowel sounds, no decreased bowel sounds, no distended, no hepatomegaly, no hyperactive bowel sounds, normal bowel sounds, no organomegaly, no rigid, no scaphoid, soft, no splenomegaly, no tenderness, no umbilical hernia, no ventral hernia - Integumentary Integumentary: normal - Neurologic Neurologic: CNII-XII intact - Musculoskeletal Musculoskeletal: strength equal bilaterally - Psychiatric Psychiatric: A&O x's 3, appropriate affect, intact judgment & insight Results CBC & Chem 7: 05/25/16 04:33 05/25/16 04:33 Labs: Abnormal Lab Results - Last 24 Hours (Table) 05/24/16 05/25/16 05/25/16 Range/Units 13:36 04:33 04:33 APTT 49.4 H 70.6 H (22.0-30.0) sec Glucose 109 H (74-99) mg/dL Microbiology - Last 24 Hours (Table) 05/24/16 08:25 Gram Stain - Preliminary Sputum Comments: ECHO report reviewed CT scan - chest: report reviewed Venous US: report reviewed Assessment and Plan (1) Deep vein thrombosis (DVT) of left lower extremity Status: Acute (2) Pulmonary embolism Status: Acute Plan: Pt was started on treatment out patient for PE on Saturday with persistent and progressive symptoms, he had LLE DVT which may very well have been present prior to evaluation as pt had no symptoms in the legs before or after starting anticoagulation. Pt mother of blood clots, this is pt 1st clot, examination of pt history does not reveal a provoking factor so this is unprovoked situation. Due to the family history recommend hypercoaguable work, Rx has been left with nursing for pt to have drawn on DC and he will follow up with Dr. Rene in about 3 weeks for results. The findings could have implications for his children if genetic, the results could also impact his duration of anticoagulation therapy. Due to the extensive nature of the PE 1 year anticoagulation would be recommended but, final recommendation will follow work up. Agree with resuming Xarelto. In regards to medistinal adenopathy there are no other suspicious findings in either pt physical exam or in his history. It would be reasonable to do follow up CT for evaluation, the lymphadenopathy is borderline and may be reactive. Pt encouraged to have age appropriate cancer screenings!! Case discussed with Dr. Spence
[2016-05-26 05:34] VITALS: RESP 18
[2016-05-26] MEDS: RIVAROXABAN 15 MG TAB PO SCH ×2 (06:35→16:50)
[2016-05-26 06:48] LABS: Basophils % (A) 1 %; CH 30.2; CHCM 33.1; Eosinophils # (A) 0.4 k/uL (0-0.7); Eosinophils % (A) 5 %; HCT 42.4 % (39.0-53.0); HDW 2.76; HGB 14.2 gm/dL (13.0-17.5); Luc # (Auto) 0.16; Luc % (Auto) 2; Lymphocytes # (A) 0.8 k/uL (1.0-4.8); Lymphocytes % (A) 12 %; MCH 30.6 pg (25.0-35.0); MCHC 33.4 g/dL (31.0-37.0); MCV 91.5 fL (80.0-100.0); Mean Platelet Volume 7.8; Monocytes # (A) 0.5 k/uL (0-1.0); Monocytes % (A) 7 %; Neutrophils % (A) 73 %; RBC 4.63 m/uL (4.30-5.90); RDW 13.2 % (11.5-15.5); WBC 6.8 k/uL (3.8-10.6)
[2016-05-26 07:04] LABS: Anion Gap 10 mmol/L; Blood Urea Nitrogen 11 mg/dL (9-20); Calcium 8.9 mg/dL (8.4-10.2); Carbon Dioxide 24 mmol/L (22-30); Chloride 107 mmol/L (98-107); Glucose 111 mg/dL (74-99); Magnesium 2.2 mg/dL (1.6-2.3); Non-African American GFR(MDRD) >60 (>60 ml/min/1.73 sqM); Phosphorous 3.5 mg/dL (2.5-4.5); Sodium 141 mmol/L (137-145)
[2016-05-26] MEDS: LOSARTAN 25 MG TAB PO SCH (09:01)
[2016-05-26] MEDS: PANTOPRAZOLE 40 MG TABLET PO SCH (09:01)
--- NOTE | 2016-05-26 09:12 | P.PN ---
Subjective Principal diagnosis: Bilateral pulmonary embolism Patient was seen and examined on 05/25/2016 Today patient is reporting improvement in his shortness of breath, his O2 sat duration on room air was down to 88% with minimal ambulation Otherwise patient denies any symptoms at this time Objective - Vital Signs Vital signs: Vital Signs Temp 98.2 F 05/26/16 00:00 Pulse 98 05/26/16 05:30 Resp 18 05/26/16 05:30 BP 147/94 05/26/16 05:30 Pulse Ox 96 05/26/16 05:30 Intake & Output 05/25/16 05/26/16 05/26/16 18:59 06:59 18:59 Intake Total 160 0 Output Total 0 250 Balance 160 -250 Intake: IV 40 0 Normal saline 40 0 Blood Product 120 Output: Urine 0 250 Other: Voiding Method Toilet Toilet # Voids 1 2 # Bowel Movements 1 - Exam HEENT head normocephalic and atraumatic Neck is supple no JVD no goiter no lymphadenopathy Chest exam reveals a few scattered crackles no wheezing Cardiac exam reveals regular heart sounds no murmurs Abdomen is soft nontender no organomegaly with normal bowel sounds Extremity exam reveals minimal edema no cyanosis or clubbing - Labs CBC & Chem 7: 05/26/16 05:55 05/26/16 05:55 Labs: Abnormal Lab Results - Last 24 Hours (Table) 05/26/16 05/26/16 Range/Units 05:55 05:55 Lymphocytes # 0.8 L (1.0-4.8) k/uL Glucose 111 H (74-99) mg/dL Assessment and Plan Plan: #1 bilateral pulmonary embolism #2 lower extremity DVT At this time continue was current management patient was restarted on Xarelto 15 mg twice daily He will be monitored on telemetry for 24 more hours Will obtain input from pulmonary and hematology Possible discharge to home tomorrow if stable
[2016-05-26 09:14] VITALS: TEMP 97.6
--- NOTE | 2016-05-26 11:43 | P.PN ---
Subjective Progress note dated down 05/25/2016 This is a 66-year-old male who was seen at [facility] earlier this week. I believe on Saturday. He was sent for an outpatient CT angiogram. He went home. Subsequent, the radiologist Dr. Kiser look at the scan and found that he had bilateral central pulmonary emboli. Others no evidence of right heart strain on CT. The patient was started on Xarelto. Subsequent to that, he developed worsening chest pain and shortness of breath and he came a the ER here where he was admitted. I repeated a CT angiogram yesterday. It again showed bilateral central pulmonary emboli. I had Dr. Kiser look at the CAT scan again in tell me that there was no evidence of right heart strain or flattening of the intraventricular septum or leftward movement of the intraventricular septum. The echocardiogram did show evidence of some mild acute right heart failure with some mild tricuspid regurgitation and enlarged right atrium large right ventricle and some flattening of the intraventricular septum. Clinically through all that she's been relatively stable. Doing much better today. We did do a Doppler below semi-which revealed a left lower extremity DVT. He is placed on IV heparin. He is doing well today and I'll be able to move him out of the ICU. He is down to a 6 L high flow. We'll be able to wean that further I believe. Hopefully in the next day or 2 will be able to the hospital. I'm to resume his as Xarelto. There is Zarrella toe should be prescribed 50 mg twice a day for 21 days and then 20 mg once a day for 6 a total of 6 months. Based on my discussing his case yesterday with him, the patient had no identifiable risk factor provoking factor for blood clot. Progress note dated 05/26/2016 66-year-old male with a history of a pulmonary embolus some. He was initially seen at the other institution. He was sent home and subsequent to that was started on a factor X a inhibitor. The patient was readmitted here with increasing shortness of breath and chest pain. A repeat computed tomography scan was basically unchanged. A Doppler of the lower extremity revealed evidence of a left DVT. The patient was treated with IV heparin and then transitioned back to Xarelto. He is doing well. His been weaned down to 2 L. He may go home later today. He may have to go home on oxygen therapy. Objective - Vital Signs Vital signs: Vital Signs Temp 97.6 F 05/26/16 09:13 Pulse 95 05/26/16 09:13 Resp 18 05/26/16 09:13 BP 169/96 05/26/16 09:13 Pulse Ox 93 L 05/26/16 09:13 Intake & Output 05/25/16 05/26/16 05/26/16 18:59 06:59 18:59 Intake Total 160 0 240 Output Total 0 250 Balance 160 -250 240 Weight 123.8 kg Intake: IV 40 0 Normal saline 40 0 Oral 240 Blood Product 120 Output: Urine 0 250 Other: Voiding Method Toilet Toilet Toilet # Voids 1 2 # Bowel Movements 1 - Exam No acute distress, oriented 3. Nasal O2 in place. He is resting comfortably. Certainly looks a lot better than yesterday. HEENT examination is grossly unremarkable. Mixed membranes are moist. Neck is supple. Full range of motion. No adenopathy. Cardiovascular examination reveals regular rhythm rate. Not tachycardic. S1- S2 normal. Lungs reveal few scattered mild rhonchi. No wheezes or crackles. Next Abdomen is soft. Next Extremities are intact. - Labs CBC & Chem 7: 05/26/16 05:55 05/26/16 05:55 Labs: Abnormal Lab Results - Last 24 Hours (Table) 05/26/16 05/26/16 Range/Units 05:55 05:55 Lymphocytes # 0.8 L (1.0-4.8) k/uL Glucose 111 H (74-99) mg/dL Microbiology - Last 24 Hours (Table) 05/24/16 08:25 Gram Stain - Final Sputum Sputum Culture - Final Assessment and Plan (1) Pulmonary embolism Status: Acute Plan: Plan The patient currently is receiving I'll high flow oxygen therapy. He is on IV heparin via weightbase protocol. He is receiving appointment 9 IV at 20 mL an hour. The patient's primary doctor is Dr. Deleon. He needs an echocardiogram to rule out acute tricuspid regurgitation right heart strain and flattening or shifting of the diaphragm of the septum. He'll need a CT angiogram the chest and Dopplers of lower extremities. Additional recommendations suggestions are forthcoming. Because of his unstable situation currently, we'll keep the ICU and keep him on IV heparin. Additional recommendations suggestions are forthcoming. Gnosis is guarded. I did talk about the possibility of low-dose TPA if he should have a submassive PE. This is a typically seen in patients who are hemodynamically stable. They may have changes on echocardiogram to suggest right heart strain and may have elevated BNP and troponin levels. I did ask her BMP and troponin levels be drawn. Plan dated 05/25/2016 The patient is doing well. He'll be able to be moved out of the ICU today. Not ready for discharge yet. We'll resume his factor X a inhibitor. Heparin can be discontinued. Getting get up and use the bathroom. Additional recommendations suggestions are forthcoming. Prognosis is guarded. Plan dated 05/26/2016 The patient could be discharged home. He should be tested to see whether or not he'll need oxygen when he goes home. He should continue on his blood thinner. He will need a follow-up computed tomography scan in about 10-12 weeks. In my opinion he should be treated for a full 6 months. No additional recommendations are made. He will follow with me in the office. Time with Patient: Less than 30
--- NOTE | 2016-05-26 14:30 | P.DS ---
Providers Date of admission: 05/23/16 21:05 Expected date of discharge: 05/26/16 Attending physician: Phyllis Hoover Consults: 05/24/16 15:10 Consult Physician Routine Consulting Provider: Jose Rene Consult Reason/Comments: DVT/PE Do you want consulting provider notified?: Yes Primary care physician: Elisa Deleon [facility] Course: Diagnosis on Discharge: #1 bilateral central pulmonary embolism #2 lower extremity DVT #3 Hypoxia requiring oxygen use, 2 saturation down to 84% with minimal ambulation on room air Hospital course patient is a 66-year-old male admitted to [facility] with severe shortness of breath and pleuritic chest pain Patient was diagnosed as outpatient by his primary care physician as having pulmonary embolism he was started on Xarelto 15 mg twice daily however he started having worsening shortness of breath and pleuritic chest pain, he presented to emergency room at that time he was started on IV heparin and was admitted to intensive care unit, he was evaluated by pulmonary critical care he was also be evaluated by hematology. He was continued on IV heparin for several days, his clinical symptoms improved, he was switched back to Xarelto 15 mg twice daily. And was monitored for 24 more hours. During this admission patient had multiple trials of ambulation without oxygen and his O2 sat duration was dropping down to the 80s, at the time of discharge O2 sat duration after few minutes of ambulation was 84% on room air. Home oxygen was ordered at that time. Plan - Discharge Summary Discharge Medication List Albuterol Nebulized [Ventolin Nebulized] 2.5 mg INHALATION RT-Q6H PRN 05/23/16 [ History] Losartan [Cozaar] 100 mg PO DAILY 05/23/16 [History] Rivaroxaban [Xarelto] 15 mg PO BID 05/23/16 [History] Atorvastatin [Lipitor] 20 mg PO DAILY 05/24/16 [History] Bisoprolol-Hctz 10-6.25 mg [Ziac 10-6.25 MG] 1 each PO DAILY 05/24/16 [History] Hydrochlorothiazide 25 mg PO DAILY 05/24/16 [History] Omeprazole 40 mg PO DAILY 05/24/16 [History] amLODIPine [Norvasc] 10 mg PO DAILY 05/24/16 [History] Follow up Appointment(s)/Referral(s): Jose Rene MD [STAFF PHYSICIAN] - 06/15/16 9:15 am Elisa Deleon DO [Primary Care Provider] - 1-2 days
[2016-05-26 16:25] VITALS: BP 161/97; PULSE 107
--- NOTE | 2016-05-29 11:06 | CDI ---
In responding to this query, please exercise your independent professional judgment. The [facility] Coding Staff and Clinical Documentation Specialists appreciate your assistance in clarifying documentation, maintaining compliance with coding guidelines, accurately documenting patients condition and capturing severity of illness. The fact that a question is asked does not imply that any particular answer is desired or expected. Communication forms are a method of clarifying documentation and are not made part of the Legal Health Record. Thank you in advance for your clarification. Last Revision, May 2015 Deysi Fu [address] [facility] [place] [address] Documentation Clarification Form Date: 05/29/2016 10:45:00 AM From: Dorcas Radford Phone: Admit Date: 05/23/2016 9:05:00 PM Patient Name: Jn Levy Visit Number: [id number] Discharge Date: 05/29/16 Dr. Phyllis Hoover CHF is documented in the 05/25 & 05/26 progress notes. History/Risk Factors: PE, DVT, HTN BNP: 0 Echocardiogram Results: Right ventricular systolic pressure, 43.98mmHg. Moderate concentric left ventricular hypertrophy. Overall left ventricular systolic function is normal w EF between 55-80%. Right ventricle moderately enlarged. Right ventricular septal wall is flattened in diastole and systole which is consistent w right ventricular volume & pressure overload. Chest X Ray: Enlarged heart. Consults: Pulmonary In your professional opinion, can you please clarify the acuity and type of CHF if known? 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 Include clinical findings that support your diagnosis. FYI: Press F11 to launch patient chart. KRISTEL Velasquez, CCS, AHIMA Certified [employer] Geriatric Psychiatrist/Community Planner Geriatric Psychiatrist II JEANE
== END 2016-05-26 17:11 | disposition home or self-care (01) | DRG 175 ==
LOC: EC 19:35 → 6ICU 21:05 → 6SEL 05-26 05:32
PROVIDERS: ADMIT Internal Medicine; ATTEND Internal Medicine
DX: I26.99 Other pulmonary embolism without acute cor pulmonale (principal); J96.01 Acute respiratory failure with hypoxia; I82.432 Acute embolism and thrombosis of left popliteal vein; I82.4Z2 Acute embolism and thrombosis of unspecified deep veins of left distal lower extremity; I50.9 Heart failure, unspecified; I07.1 Rheumatic tricuspid insufficiency; Z86.711 Personal history of pulmonary embolism; E87.6 Hypokalemia; Z23 Encounter for immunization; Z79.899 Other long term (current) drug therapy
CPT/HCPCS: 36415; 71010; 71020; 71275; 80048; 80053; 81001; 82550; 82553; 83735; 83880; 84100; 84484; 85025; 85379; 85610; 85730; 87070; 87205; 90732; 93005; 93306; 93970; 94640; 96365; 96375; 96376; 99291

== ENCOUNTER → 2016-05-30 | Outpatient (CLI) | payer BC ==
[2016-05-31 06:11] LABS: Cardiolipin Ab IgG <9.0 GPL (<15); Cardiolipin Ab IgM <9.0 MPL (<12.5)
[2016-05-31 13:42] LABS: Hexagonal Phase Neutralization Positive (Negative)
[2016-06-14 12:12] LABS: Mis test requested (Blood) PHOSPHATIDYLSER ABS
== END | disposition home or self-care (01) ==
LOC: LABWHC1 12:48
PROVIDERS: ATTEND Registered Nurse Oncology
DX: I26.99 Other pulmonary embolism without acute cor pulmonale (principal); Z79.899 Other long term (current) drug therapy
CPT/HCPCS: 36415; 81240; 85300; 85598; 85613; 85730; 85732; 86147; 86148

== ENCOUNTER → 2017-06-27 | Outpatient (CLI) | payer BC ==
[2017-06-27 17:09] LABS: Blood Urea Nitrogen 18 mg/dL (9-20)
--- NOTE | 2017-06-27 18:24 | CT ---
EXAMINATION TYPE: CT angio chest DATE OF EXAM: 06/27/2017 5:37 PM COMPARISON: 05/24/2016 HISTORY: Follow up scan. Prior history of PE CT DLP: 596.8 mGycm Automated exposure control for dose reduction was used. CONTRAST: CTA scan of the thorax is performed with IV Contrast, patient injected with 97 mL of Isovue 300, pulm onary embolism protocol. There are 3-D post processed images.. FINDINGS: There is mild subpleural interstitial infiltrate at the lung bases. There is some mild groundglass ty pe interstitial infiltrate in the lower lobes. There are multiple enlarged mediastinal and bronchial lymph nodes that measure up to 2 cm. Subcarinal lymph node measures 2.6 cm. 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 There is no e vidence of dissection. There are small filling defects in the right lower lobe pulmonary artery. I se e no other definite filling defects. IMPRESSION: PULMONARY EMBOLI HAVE MOSTLY CLEARED COMPARED TO LAST EXAM. THERE IS SOME MINIMAL RESIDUAL EMBOLI IN THE RIGHT LOWER LOBE PULMONARY ARTERY. MEDIASTINAL AND BRONCHIAL ADENOPATHY IS UNCHANGED. INTERSTITIAL PULMONARY INFILTRATES AND PULMONARY FIBROTIC CHANGES. THIS IS IMPROVED SLIGHTLY COMPARED TO LAST EXAM. THERE IS CLEARING OF SOME LEFT UPPER LOBE INFILTRATE COMPARED TO LAST EXAM.
== END | disposition home or self-care (01) ==
LOC: RADCTMAIN 16:27
PROVIDERS: ATTEND Family Medicine
DX: I26.99 Other pulmonary embolism without acute cor pulmonale (principal); R59.0 Localized enlarged lymph nodes
CPT/HCPCS: 82565; 84520; 71275; 36415; Q9967